=== PATIENT | female | born 1985 ===

== ENCOUNTER 2018-02-02 07:53 | Emergency (ER) | payer OTHER ==
[~2018-02-02] VITALS: Ht 170.2 cm; Wt 70.3 kg
[~2018-02-02 07:53] MED LIST: FLAGYL500MG PO; INTESTINEX680 MG PO; PROBIOTIC1 EACH PO; PROTONIX40 MG PO; QUESTRAN PACKET4 GM PO; TOPROL XL25 MG; ZANTAC150 MG PO
== END 2018-02-02 13:07 | disposition home or self-care (01) ==
LOC: ER 07:53
DX: K52.9 Noninfective gastroenteritis and colitis, unspecified (principal)

== ENCOUNTER 2018-02-09 09:25 | Emergency (ER) | payer OTHER ==
[~2018-02-09] VITALS: Ht 167.6 cm; Wt 70.3 kg
[2018-02-09] MEDS ORDERED: BISOPROLOL FUMAR5 MG PO (09:58)
== END 2018-02-09 13:01 | disposition home or self-care (01) ==
LOC: ER 09:25
DX: R19.7 Diarrhea, unspecified (principal)

== ENCOUNTER 2018-07-12 09:23 | Emergency (ER) | payer OTHER ==
[~2018-07-12] VITALS: Ht 170.2 cm; Wt 65.8 kg
[~2018-07-12 09:23] MED LIST changes: +BISOPROLOL FUMAR5 MG PO
[2018-07-12] MEDS ORDERED: MOBIC15 MG (09:47)
[2018-07-12] MEDS ORDERED: NORFLEX100MG (09:47)
== END 2018-07-12 14:45 | disposition home or self-care (01) ==
LOC: ER 09:23
DX: K58.0 Irritable bowel syndrome with diarrhea (principal)

== ENCOUNTER 2023-03-06 13:12 | Outpatient (CLI) | payer OTHER ==
[~2023-03-06 13:12] MED LIST changes: +MOBIC15 MG; +NORFLEX100MG
== END 2023-03-06 13:28 | disposition home or self-care (01) ==
LOC: RAD 13:12
PROVIDERS: ATTEND General Practice
DX: R07.89 Other chest pain (principal)